=== PATIENT | female | born 1995 ===

== ENCOUNTER 2019-04-08 10:50 | Observation (INO) | payer MEDICAID, OTHER ==
[~2019-04-08] VITALS: Ht 170.2 cm; Wt 121.6 kg
[2019-04-08] MEDS ORDERED: LACTATED RINGER'S 1,000 ML IV ONE (11:28)
[2019-04-08 12:44] LABS: Urine Bacteria MOD /hpf (None Seen); Urine Blood Negative /uL (Negative); Urine Mucus FEW (None Seen); Urine WBC 3 /hpf (0 - 5)
[2019-04-08 12:57] LABS: Alcohol, Urine < 3.0 mg/dL (0-5); Amphetamine Screen, Urine NEGATIVE (NEGATIVE); Barbiturate Scree,Urine NEGATIVE (NEGATIVE); Benzodiazephine Screen, Urine NEGATIVE (NEGATIVE); Cannabinoid Screen, Urine NEGATIVE (NEGATIVE); Cocaine Screen, Urine NEGATIVE (NEGATIVE); Opiate Scree,Urine NEGATIVE (NEGATIVE); Phencyclidine Screen, Urine NEGATIVE (NEGATIVE)
[2019-04-08] MEDS ORDERED: PREN-96 PO (13:34)
[2019-04-08] MEDS ORDERED: ASPI-404 PO (13:34)
[2019-04-08] MEDS ORDERED: FERR27TA2 PO (13:34)
== END 2019-04-08 13:20 | disposition home or self-care (01) | DRG 566 ==
LOC: LDRP 10:50
PROVIDERS: ADMIT Obstetrics & Gynecology; ATTEND Obstetrics & Gynecology
DX: O62.9 Abnormality of forces of labor, unspecified (principal); F17.200 Nicotine dependence, unspecified, uncomplicated; O99.332 Smoking (tobacco) complicating pregnancy, second trimester; Z3A.23 23 weeks gestation of pregnancy
CPT/HCPCS: 59025; 76815; 80307; 81001; 81002; G0378; 96361